=== PATIENT | male | born 1945 | race Caucasian/White ===

== ENCOUNTER → 2023-12-02 08:50 | Outpatient (REF) | payer MEDICARE, OTHER, SELFPAY | LOC: DHVS 08:50 | PROVIDERS: ATTENDING PHYSICIAN Physician Assistant; FAMILY PHYSICIAN Family Medicine | DX: I71.40 Abdominal aortic aneurysm, without rupture, unspecified (principal) | CPT/HCPCS: 76770 ==

== ENCOUNTER → 2024-12-09 07:52 | Outpatient (REF) | payer MEDICARE, OTHER, SELFPAY | LOC: RAD 07:52 | PROVIDERS: ATTENDING PHYSICIAN Surgery Vascular Surgery; FAMILY PHYSICIAN Family Medicine | DX: I71.40 Abdominal aortic aneurysm, without rupture, unspecified (principal) | CPT/HCPCS: 76770 ==